=== PATIENT | male | born 1960 | race Caucasian/White ===

== ENCOUNTER 2018-05-18 16:10 | Emergency (ER) | payer BC ==
[~2018-05-18] VITALS: Ht 175.3 cm; Wt 86.0 kg
[2018-05-18] MEDS ORDERED: PERCOCET 5/31 TABLET PO (19:02)
[2018-05-18 19:22] VITALS: BP 130/56
== END 2018-05-18 19:22 | disposition home or self-care (01) ==
LOC: EME 16:10
DX: S92.425A Nondisplaced fracture of distal phalanx of left great toe, initial encounter for closed fracture (principal); S91.202A Unspecified open wound of left great toe with damage to nail, initial encounter; W22.8XXA Striking against or struck by other objects, initial encounter; E11.9 Type 2 diabetes mellitus without complications; F17.200 Nicotine dependence, unspecified, uncomplicated
CPT/HCPCS: 73660; 99281; 99283